=== PATIENT | female | born 1995 | race Caucasian/White ===

== ENCOUNTER 2018-09-19 16:14 | Outpatient (CLI) | payer OTHER, SELFPAY ==
[2018-09-19 16:50] LABS: Abs Immature Grans 0.02 k/cumm (0.0-0.09); Absolute Basophil Count 0.02 k/cumm (0.0-0.2); Absolute Lymphocyte Count 1.76 k/cumm (1.2-3.4); Absolute Neutrophil Count 8.23 k/cumm (1.2-6.7); Basophils % 0.2; Eosinophils % 2.7; Glucose,1 Hr (Glucola) 106 mg/dL (80-140); HCT 35.7 % (36.0-46.0); HGB 12.2 g/dL (12.0-15.5); Immature Grans % 0.2; Lymphocytes % 16.1; Mean Corp. HGB Concentration 34.2 g/dL (32.0-36.0); Mean Corpuscular Hemoglobin 29.3 pg (27.0-33.0); Mean Corpuscular Volume 85.8 fL (80-95); Mean Platelet Volume 9.7 fL (8.0-11.0); Monocytes % 5.5; Neutrophils % 75.3; Platelet Count 270 x1000/uL (130-400); RBC 4.16 m/cumm (4.00-5.20); RBC Distribution Width 12.2 % (11.7-14.6); White Blood Cell Count 10.93 k/cumm (4.4-10.8)
[2018-09-19 17:13] LABS: TSH (W/Ref FT4) 4.18 uIU/mL (0.358-3.74)
[2018-09-19 17:36] LABS: FREE T4 0.94 ng/dL (0.76-1.46)
[2018-09-19 17:42] LABS: *AMPHETAMINES SCREEN URINE Negative (Negative); *BARBITURATES SCREEN URINE Negative (Negative); *BENZODIAZEPINES SCREEN URINE Negative (Negative); Cannabinoids THC Negative (Negative); Cocaine Screen,Urine Negative (Negative); METHADONE URINE SCREEN Negative (Negative); OPIATES URINE SCREEN Negative (Negative)
[2018-09-19 17:43] LABS: Tricyclic Antidepressants Negative (Negative)
[2018-09-21 11:35] LABS: HIV-1/2 Ag & Ab Screen Negative (NEGAT)
[2018-09-23 11:03] LABS: Buprenorphine Negative; Norbuprenorphine Negative
[2018-09-23 11:10] LABS: Varicella IgG Antibody Positive
[2018-09-23 12:08] LABS: Hepatitis C Ab w Rflx HCV PCR Negative (NEGAT)
[2018-09-23 12:11] LABS: Hepatitis B Surface Ag Negative (NEGAT)
[2018-09-23 12:23] LABS: Rubella IgG Ab (UVM) Positive
[2018-09-23 12:40] LABS: Syphilis Serology (RPR) Negative (Negative)
[2018-09-23 13:46] LABS: Chlamydia Result Negative; GC Result Negative; Specimen Description CERVIX
== END 2018-09-19 16:34 ==
PROVIDERS: PCP Family Medicine; Visit Provider Advanced Practice Midwife
DX: Z34.91 Encounter for supervision of normal pregnancy, unspecified, first trimester (principal); Z11.3 Encounter for screening for infections with a predominantly sexual mode of transmission; Z11.4 Encounter for screening for human immunodeficiency virus [HIV]; Z11.59 Encounter for screening for other viral diseases
CPT/HCPCS: 36415; 80055; 80307; 82950; 86787; 86803; 86850; 86900; 86901; 87340; 87389; 87491; 87591; 84439; 84443; 86592; 86762; 87086

== ENCOUNTER 2018-10-17 13:47 | Outpatient (CLI) | payer OTHER, SELFPAY ==
[2018-10-17 15:26] LABS: FREE T4 1.03 ng/dL (0.76-1.46); TSH 2.31 uIU/mL (0.358-3.74)
== END 2018-10-17 14:07 ==
PROVIDERS: PCP Family Medicine; Visit Provider Advanced Practice Midwife
DX: Z34.92 Encounter for supervision of normal pregnancy, unspecified, second trimester (principal)
CPT/HCPCS: 36415; 84439; 84443

== ENCOUNTER 2018-11-12 00:12 | Outpatient (CLI) | payer OTHER, SELFPAY ==
--- NOTE | 2018-11-12 13:49 | DI.US_ITS ---
SYMPTOMS/DIAGNOSIS: , Z34.90, SURVEY OB ULTRASOUND: Predicted Gestational Age: Indication/History: 18+2 Wks Range: 17+2 to 19+2 Prior US done on: Determined by: First US LMP History EDC by prior US: 04/13/19 For multiple gestations: Baby PLACENTA: Grade: I Location: Anterior X Posterior PRESENTATION: RT LT LOW LYING PREVIA Cephalic Trans (Head RT LT ) Varied Breech X BIOMETRY: Anatomy Identified: BPD: 40 mm 18 wks 4 chamber Heart X Heart Rate 155 BPM HC: 148 mm 18 wks LVOT X Post Fossa X AC: 126 mm 18+2 wks RVOT X Ventricles X FL: 26 mm 18 wks Stomach X Nose X Bladder X Lips X Cisterna Magna: 2.7 mm CI: 85 Kidneys X Palate X Cerebellum: 1.88 cm 3-vessel cord X Spine X EFW: 225 grms 35% Cord Insertion X NS= not seen Composite Age (US) 18+1 wks Many abnormalities cannot be diagnosed. A normal exam does not exclude congenital abnormality. EDC by US: 04/14/18 Amniotic Fluid Index: Normal COMMENTS: Placental tip is 2.0 cm from internal os RUQ: LUQ: RLQ: LLQ: Total: cm Biophysical Profile: Score 0/2 SUBHASH (>2cm) Respirations (>30 sec) Body flexion/extension Extremity flexion/extension TOTAL SCORE OB ultrasound was performed utilizing second trimester protocol. biometry is consistent with gestational age of 18 weeks 1 day and an EDC of 04/14/18. Placenta is posterior with no evidence of placenta previa. There is a normal quantity of amniotic fluid. anomaly screen is within normal limits as per the attached checklist.
== END 2018-11-12 00:32 ==
PROVIDERS: PCP Family Medicine; Visit Provider Advanced Practice Midwife
DX: Z34.92 Encounter for supervision of normal pregnancy, unspecified, second trimester (principal)
CPT/HCPCS: 76805

== ENCOUNTER 2018-12-20 12:10 | Outpatient (CLI) | payer OTHER, SELFPAY ==
[2018-12-20 12:42] LABS: Bilirubin Negative (Negative); Blood Negative (Negative); Clarity Clear (Clear); Glucose Negative (Negative); Ketones Negative (Negative); Leukocyte Esterase Trace (Negative); Nitrite Negative (Negative); Specific Gravity <= 1.005 (1.005-1.025); Urobilinogen 0.2 EU/dL (Up TO 0.2); pH 5.5 (5-8)
[2018-12-20 12:53] LABS: Bacteria Many HPF (Negative); C & S Indicated? C&S Done As Ordered; Casts Negative LPF (Negative); Crystals Negative HPF (Negative); Epithelial Cells Moderate HPF (Negative); Mucus Negative (Negative); Other Cells Few Renal (Negative); RBC 0-2 (0-2)
== END 2018-12-20 12:30 ==
PROVIDERS: PCP Family Medicine; Visit Provider Advanced Practice Midwife
DX: O26.899 Other specified pregnancy related conditions, unspecified trimester (principal); R30.0 Dysuria
CPT/HCPCS: 81003; 81015; 87086

== ENCOUNTER 2019-01-22 00:48 | Outpatient (CLI) | payer OTHER, SELFPAY ==
--- NOTE | 2019-01-22 15:19 | DI.US_ITS ---
EXAM: US OB F/U FACIAL/LVOT/RVOT CLINICAL HISTORY: low lying placenta. Check placenta position,z34.90. TECHNIQUE: Ultrasound performed using standard protocol. COMPARISON: US OB 2-3 trimester from 11/12/2018 FINDINGS: The placental tip lies 7.8 cm from the internal os. A crum is demonstrated in a cephalic positi on.
== END 2019-01-22 01:08 ==
PROVIDERS: PCP Family Medicine; Visit Provider Advanced Practice Midwife
DX: Z34.93 Encounter for supervision of normal pregnancy, unspecified, third trimester (principal)
CPT/HCPCS: 76815

== ENCOUNTER 2019-01-23 08:58 | Outpatient (CLI) | payer OTHER, SELFPAY ==
[2019-01-23 12:35] LABS: HCT 33.2 % (36.0-46.0); HGB 11.1 g/dL (12.0-15.5); Mean Corp. HGB Concentration 33.4 g/dL (32.0-36.0); Mean Corpuscular Hemoglobin 29.3 pg (27.0-33.0); Mean Corpuscular Volume 87.6 fL (80-95); Mean Platelet Volume 9.2 fL (8.0-11.0); Platelet Count 267 x1000/uL (130-400); RBC 3.79 m/cumm (4.00-5.20); RBC Distribution Width 12.9 % (11.7-14.6)
[2019-01-23 12:52] LABS: Glucose,1 Hr (Glucola) 84 mg/dL (80-140)
== END 2019-01-23 09:18 ==
PROVIDERS: PCP Family Medicine; Visit Provider Advanced Practice Midwife
DX: Z34.93 Encounter for supervision of normal pregnancy, unspecified, third trimester (principal)
CPT/HCPCS: 36415; 82950; 85027

== ENCOUNTER 2019-03-19 00:36 | Outpatient (CLI) | payer OTHER, SELFPAY ==
--- NOTE | 2019-03-19 12:42 | DI.US_ITS ---
EXAM: US OB SUBHASH AND WEIGHT CLINICAL HISTORY: Suspected macrosomia, , Z34.90 TECHNIQUE: Ultrasound performed using standard protocol. COMPARISON: US OB F/U FACIAL/LVOT/RVOT from 01/22/2019 FINDINGS: There is a single living intrauterine gestation. Estimated sonographic age is 37 weeks 2 days. The fetus is in the cephalic presentation. heart rate is 143 beats per minute. Estimated feta l weight is 3171 grams. This is the 76th percentile Amniotic fluid index is 21.7 cm. Placenta is posterior without evidence of previa. IMPRESSION: Single living intrauterine gestation. Estimated sonographic age is 37 weeks 2 days.
== END 2019-03-19 00:56 ==
PROVIDERS: PCP Family Medicine; Visit Provider Obstetrics & Gynecology
DX: Z34.93 Encounter for supervision of normal pregnancy, unspecified, third trimester (principal)
CPT/HCPCS: 76816

== ENCOUNTER 2019-03-27 12:08 | Outpatient (CLI) | payer OTHER, SELFPAY ==
[2019-03-27 12:39] LABS: Abs Immature Grans 0.06 k/cumm (0.0-0.09); Absolute Basophil Count 0.03 k/cumm (0.0-0.2); Absolute Eosinophil Count 0.13 k/cumm (0.0-0.7); Absolute Lymphocyte Count 1.89 k/cumm (1.2-3.4); Absolute Monocyte Count 0.95 k/cumm (0.11-0.7); Absolute Neutrophil Count 6.09 k/cumm (1.2-6.7); Basophils % 0.3; Eosinophils % 1.4; HGB 11.4 g/dL (12.0-15.5); Immature Grans % 0.7; Lymphocytes % 20.7; Mean Corp. HGB Concentration 33.5 g/dL (32.0-36.0); Mean Corpuscular Hemoglobin 28.9 pg (27.0-33.0); Mean Corpuscular Volume 86.1 fL (80-95); Mean Platelet Volume 10.6 fL (8.0-11.0); Monocytes % 10.4; Neutrophils % 66.5; Platelet Count 252 x1000/uL (130-400); RBC 3.95 m/cumm (4.00-5.20); RBC Distribution Width 13.3 % (11.7-14.6); White Blood Cell Count 9.15 k/cumm (4.4-10.8)
== END 2019-03-27 12:28 ==
PROVIDERS: PCP Family Medicine; Visit Provider Obstetrics & Gynecology
DX: O99.013 Anemia complicating pregnancy, third trimester (principal)
CPT/HCPCS: 85025; 87081

== ENCOUNTER 2019-03-27 15:13 | Outpatient (REF) | payer OTHER, SELFPAY ==
[2019-03-27 14:57] LABS: *AMPHETAMINES SCREEN URINE Negative (Negative); *BARBITURATES SCREEN URINE Negative (Negative); *BENZODIAZEPINES SCREEN URINE Negative (Negative); Cannabinoids THC Negative (Negative); Cocaine Screen,Urine Negative (Negative); METHADONE URINE SCREEN Negative (Negative); OPIATES URINE SCREEN Negative (Negative)
[2019-03-27 15:02] LABS: Tricyclic Antidepressants Negative (Negative)
[2019-04-04 15:36] LABS: Buprenorphine Negative; Norbuprenorphine Negative
== END 2019-03-27 15:33 ==
LOC: LBN 15:13
PROVIDERS: PCP Family Medicine; Referring Provider Obstetrics & Gynecology; Visit Provider Obstetrics & Gynecology
DX: Z34.93 Encounter for supervision of normal pregnancy, unspecified, third trimester (principal); Z36.85 Encounter for antenatal screening for Streptococcus B
CPT/HCPCS: 80307; 87081

== ENCOUNTER 2019-03-31 13:37 | Outpatient (RCR) | payer OTHER, SELFPAY ==
[2019-03-31] MEDS: IRON SUCROSE COMPLEX 200 MG in Normal Saline 100 ML 440 MG IVPB (14:02)
[2019-03-31] MEDS: Normal Saline Flush 10 ML SYR IVP (14:03)
== END 2019-04-05 23:59 | disposition home or self-care (01) ==
LOC: INF 13:37
PROVIDERS: PCP Family Medicine; Visit Provider Obstetrics & Gynecology
DX: O99.113 Other diseases of the blood and blood-forming organs and certain disorders involving the immune mechanism complicating pregnancy, third trimester (principal)
CPT/HCPCS: 96365; J1756

== ENCOUNTER 2019-04-08 12:30 | Outpatient (RCR) | payer OTHER, SELFPAY ==
[2019-04-08] MEDS: IRON SUCROSE COMPLEX 200 MG in Normal Saline 100 ML 440 MG IVPB (13:00)
[2019-04-08] MEDS: Normal Saline Flush 10 ML SYR IVP (13:00)
== END 2019-05-06 23:59 | disposition home or self-care (01) ==
LOC: INF 12:30
PROVIDERS: PCP Family Medicine; Visit Provider Obstetrics & Gynecology
DX: O99.013 Anemia complicating pregnancy, third trimester (principal)
CPT/HCPCS: 96365; 96523; J1756

== ENCOUNTER 2019-04-08 14:44 | Outpatient (CLI) | payer OTHER, SELFPAY ==
[2019-04-08 15:25] LABS: Abs Immature Grans 0.17 k/cumm (0.0-0.09); Absolute Basophil Count 0.02 k/cumm (0.0-0.2); Absolute Eosinophil Count 0.17 k/cumm (0.0-0.7); Absolute Lymphocyte Count 1.87 k/cumm (1.2-3.4); Absolute Monocyte Count 0.84 k/cumm (0.11-0.7); Basophils % 0.2; Eosinophils % 1.5; HGB 11.3 g/dL (12.0-15.5); Immature Grans % 1.5; Lymphocytes % 16.4; Mean Corp. HGB Concentration 33.2 g/dL (32.0-36.0); Mean Corpuscular Volume 87.2 fL (80-95); Mean Platelet Volume 10.5 fL (8.0-11.0); Monocytes % 7.4; Platelet Count 252 x1000/uL (130-400); RBC Distribution Width 13.6 % (11.7-14.6)
[2019-04-08 15:27] LABS: Absolute Neutrophil Count 8.32 k/cumm (1.2-6.7)
== END 2019-04-08 15:04 ==
PROVIDERS: PCP Family Medicine; Visit Provider Obstetrics & Gynecology
DX: O34.219 Maternal care for unspecified type scar from previous cesarean delivery (principal); Z01.818 Encounter for other preprocedural examination; Z01.812 Encounter for preprocedural laboratory examination
CPT/HCPCS: 36415; 86850; 86900; 86901; 85025

== ENCOUNTER 2019-04-10 06:23 | Inpatient (IN) | payer OTHER, SELFPAY ==
--- NOTE | 2019-04-10 06:34 | W.PM.HP.N ---
Date of service: 04/10/19 Time of Service: 06:34 Assessment and Plan Assessment and plan (1) Previous delivery affecting : Status: Acute Assessment and plan: Plan to proceed with elective repeat section at term. Risks of surgery including hemorrhage, infection and injury to other organs such as bowel bladder were discussed with the patient. All questions were answered to the patient satisfaction and consent for surgery was obtained. (2) : Status: Acute History of Present Illness History of Present Illness Chief Complaint: Prior section Narrative: 23-year-old -2-0-1 at 39.4 weeks gestation presents today for scheduled repeat section. The patient's course has been uncomplicated with the exception of iron deficiency anemia. She did receive iron infusion which corrected the anemia. Her last section was performed for failure to progress. The was noted to be 10 pounds. Review of Systems All systems reviewed & are unremarkable except as noted in HPI and below PFSH Surgical History (Updated 04/10/19 @ 06:36 by Marcos Pal MD) Previous delivery affecting (Acute) Family History (Updated 09/19/18 @ 15:11 by Jerman Hernandez CNM) Mother Hypertension Social History (Updated 03/21/19 @ 12:56 by Deisi Dunaway RN) Smoking/Tobacco Use Status: Never Alcohol Intake: former (none since attempt.) Details: stopped while attempting Drug use: Never Substance use type: does not use Sexually active: Yes Do you think of yourself as: straight/heterosexual Current gender identity: female Seatbelt use: always Female Reproductive History Menstrual Duration of menses: 3-5 days control method: none History History 2 Para 1 Hx # Term Pregnancies 1 Multiple births 0 Hx # Pregnancies 0 Ectopic pregnancies 0 AB induced 0 Hx Number of Living Children 1 AB spontaneous 0 Past Pregnancies Del. Date GA/Weeks # Outcome Route Wgt Sex Labor Lgth Anesthesia Location [facility] 08/26/16 40 No Successful 10 lb Male 24 hrs [facility] [place] Delivery Date: 08/26/16 On 09/19/18 @ 15:16 JERMAN HERNANDEZ 1` c/s for ftp, got to 9cm. w/o c/o. Meds Home Medications and Allergies Home Medications Medication Instructions Recorded Confirmed Type prenat.vits,nathalia,rll-[id number] 1 tab PO DAILY 08/09/18 04/10/19 History ferrous sulfate 325 mg (65 mg 325 mg PO BID #60 tab 03/27/19 04/10/19 Rx iron) tablet Allergies Allergy/AdvReac Type Severity Reaction Status Date / Time No Known Allergies Allergy Verified 04/10/19 06:33 Exam Resp Auscultation: clear to auscultation bilaterally Cardio Rate: regular rate Rhythm: regular rhythm
[2019-04-10 06:39] VITALS: BP 116/72; PULSE 95; RESP 16; TEMP 36.3; O2SAT 95
[2019-04-10 06:41] VITALS: BP 116/72; PULSE 95; RESP 16; TEMP 36.3; O2SAT 95
[2019-04-10] MEDS: Lactated Ringers 1,000 ML 125 ML IV ×2 (06:50→14:04)
[2019-04-10] MEDS: ceFAZolin 2 GM/50 ML BAG IVPB (07:32)
--- NOTE | 2019-04-10 10:25 | ROE_ITS ---
Date of service: 04/10/19 Time of Service: 10:30 Operative Note Operative Note DATE OF PROCEDURE: 04/10/19 PRE-OP DIAGNOSIS: 1. 39 weeks. Prior section. POST-OP DIAGNOSIS: same PROCEDURE: Repeat low transverse section SURGEON: Marcos Pal ASSISTING SURGEON: Jorge Foster ANESTHESIA: spinal ESTIMATED BLOOD LOSS: 700 PATHOLOGY: none sent COMPLICATIONS: None Patient was transported to: floor Patient's condition: stable Findings: 1. Delivered a vigorous liveborn female infant Procedure Description: Patient was taken to the operating room and after adequate spinal anesthesia the patient was placed in a supine position with a left lateral tilt. The patient was prepped and draped in usual sterile manner. A Pfannenstiel incision through the previous scar was made and sharp dissection was carried down to the underlying layer fascia. The fascia was incised in the midline with a scalpel and the incision was carried laterally in either direction with Badillo scissors. The fascia was dissected off the underlying layer rectus muscles using both blunt and sharp dissection. Extensive and dense scar tissue was encountered. The rectus muscles were divided in the midline along the linea alba. The peritoneum was entered sharply with Badillo scissors. There were extensive adhesions involving the uterus to the anterior abdominal wall with a thick band of adhesions directly in the midline extending from near the fundus of the uterus down to the level of the bladder. Omental adhesions were encountered on the left side and these were taken down with the Bovie cautery. Abdominal wall adhesions to the uterus were taken down and the adnexa and structures were identified. Once it was identified at the midline band of tissue was simply a thickened band of peritoneal adhesions. The band was crossclamped with 2 Radah clamps and transected with Badillo scissors. Each end was suture ligated with a transfixed suture of 0 Vicryl. Once this band tissue was released the bladder reflection was able to be identified. It was tented up with pickups, incised with Metzenbaum scissors and the bladder flap was developed digitally. The lower uterine segment was incised in a transverse manner with a scalpel and the incision was carried laterally in either direction via stretch. The was found in cephalic presentation and delivered atraumatically with a forceps assist. Mouth and nose were suctioned. The cord was clamped and cut and the infant was handed off to the waiting river boat captain. The placenta was manually extracted. The uterus was cleared of all clots and debris. The hysterotomy was closed with a running lock stitch of #1 chromic. A second imbricating layer of #1 chromic completed the repair. Excellent hemostasis was noted. The gutters were cleared of all clots and debris. A single ipjaxt-ls-kyqme suture was required on the right side of the hysterotomy to achieve hemostasis. The peritoneum was closed with a running stitch of 2-0 Vicryl. The subfascial space was thoroughly inspected and a small bleeder was suture ligated on the left side on the rectus muscles with 3-0 Vicryl suture. The fascia was closed with a running stitch of 0 Vicryl. The subcutaneous tissues were closed with 2 layers of 3-0 Vicryl. The skin was closed with a running stitch of 4 Monocryl and Dermabond was applied. Sponge, lap and needle counts were correct at the conclusion of the procedure. The patient was transferred to PACU stable condition.
[2019-04-10] MEDS: Ondansetron 4 MG/2 ML VIAL IVP (10:38)
[2019-04-10] MEDS: Ketorolac 30 MG/ML VIAL IVP ×3 (10:38→22:10)
[2019-04-10] MEDS: Metoclopramide 10 MG/2 ML VIAL IVP (11:04)
[2019-04-10] MEDS: Droperidol 5 MG/2 ML VIAL 0.625 MG IVP (13:20)
[2019-04-10] MEDS: Naloxone 0.4 MG/ML VIAL IVP (13:55)
[2019-04-10] MEDS: Acetaminophen 325 MG TAB 650 MG PO ×2 (15:38→22:09)
[2019-04-11] MEDS: Ketorolac 30 MG/ML VIAL IVP (04:20)
[2019-04-11] MEDS: Acetaminophen 325 MG TAB 650 MG PO ×2 (04:20→10:22)
[2019-04-11 07:39] LABS: HCT 28.7 % (36.0-46.0); HGB 9.2 g/dL (12.0-15.5); Mean Corp. HGB Concentration 32.1 g/dL (32.0-36.0); Mean Corpuscular Hemoglobin 28.7 pg (27.0-33.0); Mean Corpuscular Volume 89.4 fL (80-95); Mean Platelet Volume 10.5 fL (8.0-11.0); Platelet Count 203 x1000/uL (130-400); RBC 3.21 m/cumm (4.00-5.20); White Blood Cell Count 11.28 k/cumm (4.4-10.8)
--- NOTE | 2019-04-11 08:22 | W.PM.PROGNOT ---
Date of Service Date of service: 04/11/19 Time of Service: 08:22 Assessment and Plan Assessment and plan (1) Previous delivery affecting : Status: Acute (2) S/P section: Status: Acute Assessment and plan: Continue routine postop care. Plan for discharge home tomorrow. Subjective Subjective Interval history since last seen: Doing well. Pain well controlled. Had a great deal of difficulty with vomiting yesterday postprocedure and was started on a Narcan infusion with good relief. She has minimal pain today. Minimal lochia. She is ambulatory. Tolerating regular diet. Desires discharge home tomorrow. Objective Objective Clinical Data: Abnormal lab results 04/11/19 Range/Units 06:15 WBC 11.28 H (4.4-10.8) k/cumm RBC 3.21 L (4.00-5.20) m/cumm Hgb 9.2 L D (12.0-15.5) g/dL Hct 28.7 L (36.0-46.0) % Vital Signs Temperature 97.3 F L 04/10/19 06:41 Pulse 95 H 04/10/19 06:41 Pulse Rhythm Regular 04/10/19 06:41 Respiratory Rate 16 04/10/19 06:41 Respiratory Effort 04/10/19 06:41 Respiratory Depth Normal 04/10/19 06:41 Respiratory Pattern Normal 04/10/19 06:41 Blood Pressure 116/72 04/10/19 06:41 Pulse Oximetry 95 04/10/19 06:41 Oxygen Delivery Method Room Air 04/10/19 06:41 Oxygen Flow Rate 0 04/10/19 06:41 Pain Level 4 04/11/19 04:20 Intake & Output 04/10/19 04/10/19 04/11/19 11:59 23:59 11:59 Intake Total 1050 / 1050 Output Total 800 / 800 Balance 250 / 250 Weight 250 lb 10.649 oz Intake: IV 1050 / 1050 Output: Urine 100 / 100 Estimated Blood Loss 700 / 700 Other: Urine Color Yellow Urine Appearance Clear Laboratory Results WBC 11.28 k/cumm (4.4-10.8) H 04/11/19 06:15 RBC 3.21 m/cumm (4.00-5.20) L 04/11/19 06:15 Hgb 9.2 g/dL (12.0-15.5) L D 04/11/19 06:15 Hct 28.7 % (36.0-46.0) L 04/11/19 06:15 MCV 89.4 fL (80-95) 04/11/19 06:15 MCH 28.7 pg (27.0-33.0) 04/11/19 06:15 MCHC 32.1 g/dL (32.0-36.0) 04/11/19 06:15 RDW 14.0 % (11.7-14.6) 04/11/19 06:15 Plt Count 203 x1000/uL (130-400) 04/11/19 06:15 MPV 10.5 fL (8.0-11.0) 04/11/19 06:15
[2019-04-11] MEDS: Ibuprofen 600 MG TAB PO ×3 (10:23→21:15)
[2019-04-11] MEDS: oxyCODONE 5 mg/Acetaminophen 325 mg TAB PO ×3 (15:30→21:36)
[2019-04-11] MEDS: Docusate Sodium 100 MG CAP PO (21:37)
[2019-04-12] MEDS: oxyCODONE 5 mg/Acetaminophen 325 mg TAB PO (02:30)
[2019-04-12] MEDS: Ibuprofen 600 MG TAB PO ×2 (05:28→10:37)
[2019-04-12] MEDS: Acetaminophen 325 MG TAB 650 MG PO (10:37)
--- NOTE | 2019-04-12 10:55 | W.PM.DS.N ---
Date of service: 04/12/19 Time of Service: 10:55 DS: Diagnosis Discharge Diagnosis (1) Previous delivery affecting : Status: Acute (2) S/P section: Status: Acute Discharge Plan Disposition Patient Disposition: HOME Condition: Good Discharge Details Reason For Visit: REPEAT Admit Date/Time: 04/10/19 06:23 Admit Provider: Marcos Pal Attending Provider: Marcos Pal Primary Care Provider: Joellen Pelayo V Hospital Course Hospital Course: Patient was admitted the morning of surgery underwent a Home Meds and New Rx's Prescriptions: No Action prenat.vits,nathalia,kzn-xicu-igbec tablet 1 tab PO DAILY RF: 0 ferrous sulfate 325 mg (65 mg iron) tablet 325 mg PO BID Qty: 60 RF: 0 Discharge Instructions Stand Alone Forms: BC Instructions, BC Discharge Instruc Activity:: Activity as Tolerated Equipment/Supplies:: No Equipment Needed Diet:: As Tolerated Discharge Orders Discharge Orders: Discharge Order (Routine); Ordered 04/12/19 Ordered By: Janessa Kay DS: Summary Status at Discharge Functional status at discharge: independent ambulation Overall status at discharge: patient is back to baseline Mental Status: mental status grossly normal Speech and Movement: speech and movement normal Mood: congruent mood Affect: normal affect Exam Const General: no acute distress Nutritional Appearance: overweight Orientation: alert, awake and oriented x3 Chest Chest: normal inspection of the chest Breast inspection: normal inspection of the breasts (No nipple excoriation no breast engorgement) Resp Effort & Inspection: normal respiratory effort GI Inspection: normal to inspection and scar (Well approximated no ecchymosis no drainage) Palpation: soft and other Other: Uterus involuting appropriately 3 fingerbreadths below the umbilicus Skin General skin exam: no rashes or lesions noted Extrem General: normal to inspection, full ROM and no clubbing, cyanosis or edema Psych Appearance: grossly normal Mental Status: mental status grossly normal Speech and Movement: speech and movement normal Mood: congruent mood Affect: normal affect DS: Data Vitals/I&O Vitals and I&O: Vital Signs Temperature 97.3 F L 04/10/19 06:41 Pulse 95 H 04/10/19 06:41 Pulse Rhythm Regular 04/10/19 06:41 Respiratory Rate 16 04/10/19 06:41 Respiratory Effort 04/10/19 06:41 Respiratory Depth Normal 04/10/19 06:41 Respiratory Pattern Normal 04/10/19 06:41 Blood Pressure 116/72 04/10/19 06:41 Pulse Oximetry 95 04/10/19 06:41 Oxygen Delivery Method Room Air 04/10/19 06:41 Oxygen Flow Rate 0 04/10/19 06:41 Pain Level 4 04/12/19 10:37 Intake & Output 04/11/19 04/11/19 04/12/19 11:59 23:59 11:59 Intake Total 626 / 1338.647 712.647 / 1338.647 Balance 626 / 1338.647 712.647 / 1338.647 Intake: IV 626 / 1338.647 712.647 / 1338.647 PFSH Family History (Updated 09/19/18 @ 15:11 by Jerman Azul CNM) Mother Hypertension Social History (Updated 04/12/19 @ 10:56 by Janessa Kay MD) Smoking/Tobacco Use Status: Never Alcohol Intake: former (none since attempt.) Details: stopped while attempting Drug use: Never Substance use type: does not use Number of Children: 2 Sexually active: Yes Do you think of yourself as: straight/heterosexual Current gender identity: female Seatbelt use: always Female Reproductive History Menstrual Duration of menses: 3-5 days control method: none History History 2 Para 1 Hx # Term Pregnancies 1 Multiple births 0 Hx # Pregnancies 0 Ectopic pregnancies 0 AB induced 0 Hx Number of Living Children 1 AB spontaneous 0 Past Pregnancies Del. Date GA/Weeks # Outcome Route Wgt Sex Labor Lgth Anesthesia Location Prov [facility] 08/26/16 40 No Successful 10 lb Male 24 hrs [facility] [place] 04/10/19 39 No Successful Female Marcos Pal Delivery Date: 08/26/16 On 09/19/18 @ 15:16 JERMAN AZUL 1` c/s for ftp, got to 9cm. w/o c/o. Delivery Date: 04/10/19 On 04/12/19 @ 10:57 Janessa Kay Elective repeat . Jasmeet Gaspar
== END 2019-04-12 11:25 | disposition home or self-care (01) | DRG 788 ==
LOC: PDS 06:23 → OBS 11:11
PROVIDERS: Admitting Provider Obstetrics & Gynecology; PCP Family Medicine; Visit Provider Obstetrics & Gynecology
PROC: 10D00Z1 Extraction of Products of Conception, Low, Open Approach (ICD-10-PCS; CPT 59514; principal; 2019-04-10 07:30)
DX: O34.211 Maternal care for low transverse scar from previous cesarean delivery (principal); Z37.0 Single live birth; Z3A.39 39 weeks gestation of pregnancy
CPT/HCPCS: 59514; 36415; 85027; 99223; 99233; NC; J0690; J1790; J1885; J2310; J2370; J2405; J2765; J3010

== ENCOUNTER 2019-12-31 20:35 | Outpatient (REF) | payer BC, SELFPAY ==
[2020-01-03 07:10] LABS: SARS-CoV-2 RNA Undetected (Undetected); SARS-CoV-2 Specimen Source Nasopharynx
== END 2019-12-31 20:55 ==
LOC: NCHCN 20:35
PROVIDERS: PCP Family Medicine; Visit Provider Nurse Practitioner Family
DX: Z20.828 Contact with and (suspected) exposure to other viral communicable diseases (principal)
CPT/HCPCS: U0003

== ENCOUNTER 2022-03-16 18:22 | Outpatient (REF) | payer BC, SELFPAY ==
[2022-03-18 11:29] LABS: COVID-19 RT-PCR UVMMC Result Negative (Negative)
== END 2022-03-16 18:23 | disposition home or self-care (01) ==
LOC: LBN 18:22
PROVIDERS: PCP Family Medicine; Visit Provider Physician Assistant Medical
DX: Z20.822 Contact with and (suspected) exposure to COVID-19 (principal); J06.9 Acute upper respiratory infection, unspecified
CPT/HCPCS: U0003

== ENCOUNTER 2022-07-04 10:35 | Outpatient (REF) | payer BC, SELFPAY ==
--- NOTE | 2022-07-04 10:30 | PAPFT_PTH ---
PATIENT: Loree Zaman LOC: [facility] U#:[id number] AGE/SX: 27/F ROOM: RE07/04/[address]: Darby Mejia MD : 1995 BED: DIS: 07/04/2022 SPEC #: [id number] RECD: 07/04/22 12:29 STATUS: JULIANE RERanulfo #: [id number] DIMAS: 07/04/22 10:[address]: Darby Mejia DEPT: [facility] Cytology RECD BY: uNnu Gross ENTERED: 07/04/22 12:29 SP TYPE: PAPFT OTHR DR: Joellen Pelayo V Tissues: 1 - CX/ENDOCX FOR PAP SMEARS Procedures: PAP THIN PREP/[facility] Screening Comments: [id number]
== END 2022-07-04 10:36 | disposition home or self-care (01) ==
LOC: LBN 10:35
PROVIDERS: PCP Family Medicine; Visit Provider Obstetrics & Gynecology
DX: Z12.4 Encounter for screening for malignant neoplasm of cervix (principal)
CPT/HCPCS: 88142

== ENCOUNTER 2024-04-16 18:49 | Outpatient (REF) | payer BC, SELFPAY ==
[2024-04-16 22:02] LABS: Abs Immature Grans 0.03 10^3/uL (0.0-0.06); Absolute Basophil Count 0.07 10^3/uL (0.0-0.2); Absolute Eosinophil Count 0.43 10^3/uL (0.0-0.7); Absolute Lymphocyte Count 1.86 10^3/uL (1.2-3.4); Absolute Monocyte Count 0.64 10^3/uL (0.1-0.8); Absolute Neutrophil Count 4.97 10^3/uL (1.2-6.7); Basophils % 0.9 %; Eosinophils % 5.4 %; HCT 41.8 % (36.0-46.0); HGB 13.9 g/dL (11.2-15.7); Immature Grans % 0.4 %; Lymphocytes % 23.3 %; MCH 29.4 pg (27.0-33.0); MCHC 33.3 % (32.0-36.0); MCV 88 fL (80-95); MPV 9.8 fL (8.0-11.0); Platelet Count 314 10^3/uL (130-400); RBC 4.73 10^6/uL (3.93-5.22); RDW 11.7 % (11.7-14.6); RDW-SD 37.5 fL
[2024-04-16 22:25] LABS: Hemoglobin A1C 5.1 % (<5.7)
[2024-04-16 22:42] LABS: Anion Gap 10.2 mmol/L (3-11); BUN 11 mg/dL (7-18); CO2 26.8 mmol/L (21.0-32.0); CREATININE 0.7 mg/dL (0.55-1.02); Calcium 9.3 mg/dL (8.5-10.1); Chloride 105 mmol/L (98-107); Estimated GFR 119.24 (mL/min/1.73m2); Glucose 94 mg/dL (74-106); Potassium 4.1 mmol/L (3.5-5.1); Sodium 142 mmol/L (136-145); TSH (W/Ref FT4) 2.47 uIU/mL (0.36-3.74)
== END 2024-04-16 18:50 | disposition home or self-care (01) ==
LOC: NCHCN 18:49
PROVIDERS: Visit Provider Family Medicine
DX: E66.9 Obesity, unspecified (principal); N62 Hypertrophy of breast; Z13.1 Encounter for screening for diabetes mellitus
CPT/HCPCS: 80048; 83036; 84443; 85025